=== PATIENT | male | born 1965 | race Caucasian/White ===

== ENCOUNTER 2024-07-10 18:00 | Emergency (ER) | payer BC | END 2024-07-10 19:54 | disposition home or self-care (01) | LOC: JD.ED 18:00 | DX: S92.344A Nondisplaced fracture of fourth metatarsal bone, right foot, initial encounter for closed fracture (principal); Z79.899 Other long term (current) drug therapy; W20.8XXA Other cause of strike by thrown, projected or falling object, initial encounter; Y93.89 Activity, other specified | CPT/HCPCS: 73630-26-RT; 73630-RT; 99283 ==